=== PATIENT | female | born 1985 | race Caucasian/White ===

== ENCOUNTER 2016-06-19 18:41 | Emergency (ER) | payer MEDICAID ==
[~2016-06-19] VITALS: Ht 152.4 cm; Wt 81.6 kg
[2016-06-19 19:52] VITALS: BP 114/79
--- NOTE | 2016-06-19 20:31 | NUR ---
PT TAKEN TO BED 4
--- NOTE | 2016-06-19 20:37 | NUR ---
30Y/F PATIENT PRESENTS TO ED WITH C/O LOWER ABD PAIN X 1WEEK. PATIENT STATES PAIN INTERMITTENTLY WITH OCCASIONAL RT LEG NUMBNESS. TOOK TRAMADOL WITH RELIEF YESTERDAY. DENIES N/V/D. NO MED HX; SKIN IS PINK/WARM/DRY; AAOX4 WITH EVEN AND STEADY GAIT; LUNGS CLEAR BL; HR EVEN AND REGULAR; PT DENIES ANY FEVER, CP, SOB, OR COUGH AT THIS TIME; PATIENT STATES PAIN OF 6/10 AT THIS TIME; VSS; PATIENT POSITIONED FOR COMFORT; HOB ELEVATED; BEDRAILS UP X2; BED DOWN. ER MD MADE AWARE OF PT STATUS.
--- NOTE | 2016-06-19 21:25 | NUR ---
Dr. Lan evaluating patient at bedside.
[2016-06-19] MEDS ORDERED: KETOROLAC 60 MG/2 ML VIAL IM ONE (21:30)
--- NOTE | 2016-06-19 23:43 | NUR ---
Patient discharged with v/s stable. Written and verbal after care instructions given and explained. Patient alert, oriented and verbalized understanding of instructions. Carried with steady gait. All questions addressed prior to discharge. ID band removed. Patient advised to follow up with PMD. Rx of NORCO 5/325 MG given. Patient educated on indication of medication including possible reaction and side effects. Opportunity to ask questions provided and answered.
[2016-06-19 23:44] VITALS: BP 120/75
== END 2016-06-19 23:43 | disposition home or self-care (01) ==
LOC: MED 18:41
DX: R10.32 Left lower quadrant pain (principal); R11.0 Nausea; R42 Dizziness and giddiness; Z90.89 Acquired absence of other organs
CPT/HCPCS: 36415; 76856; 80053; 81002; 81025; 83690; 85025; 96372; 99285; J1885